=== PATIENT | female | born 1975 | race Caucasian/White ===

== ENCOUNTER 2017-01-07 02:23 | Emergency (ER) | payer BC ==
--- NOTE | ~2017-01-07 | ER ---
PATIENT'S NAME: ESTUARDO HELMS [facility] AGE: 41 Y [address] ROOM: [place] [address] LOCATION: [facility] ADMIT DATE: 01/07/2017 ER/Outpatient Report DISCHARGE DATE: FAMILY PHYSICIAN: Randy Delong MD ATTENDING PHYSICIAN: Barron Tobin Admission date and time are documented on the medical record. I saw the patient at 0245 hours. CHIEF COMPLAINT: Abdominal pain. HISTORY OF PRESENT ILLNESS: This patient is a 41-year-old female who comes in with abdominal pain, pretty much generalized, worse in the lower abdomen since 0100 hours. Not been feeling well for about a couple of days. Been depressed and sad. She has been having night sweats with shortness of breath. She has some shakiness with this also. Some nausea, but no vomiting. Hard to have a bowel movement. She has a chronic intermittent constipation. No fever, chills, sweats, coughs, colds, or flus. No lightheadedness, dizziness, syncope, or near syncope. No fall or trauma. No chest pain, shortness of breath at the present time. No joint or muscle swelling, redness, or pain. No skin eruptions or rash. No neuro changes, psych issues, other than sadness and depression. HOME MEDICATIONS: See attached medication list. ALLERGIES: NONE. SOCIAL HISTORY: Nonsmoker, nondrinker. SIGNIFICANT PAST MEDICAL HISTORY: Chronic intermittent constipation. OPERATIONS: Three C-sections. REVIEW OF SYSTEMS: All systems reviewed by me are negative with the exception of those discussed in the history of present illness. PHYSICAL EXAMINATION: PATIENT'S NAME: ESTUARDO HELMS [facility] AGE: 41 Y [address] ROOM: [place], [place] [id number] LOCATION: [facility] ADMIT DATE: 01/07/2017 ER/Outpatient Report DISCHARGE DATE: FAMILY PHYSICIAN: Randy Delong MD ATTENDING PHYSICIAN: Barron Tobin VITAL SIGNS: Temperature 98.5, pulse 93, respirations 18, blood pressure 112/59, and O2 sat on room air is 97%. HEAD: Normocephalic. EYES, EARS, NOSE, THROAT: Clear. Mucous membranes moist. NECK: Negative. SPINE: Negative. LUNGS: Clear. No rales, rhonchi, or wheezes. HEART: Regular. Pulses are palpable. ABDOMEN: Soft, nondistended, nontender. Good bowel tones. No organomegaly or abnormal mass palpable. EXTREMITIES: Intact. NEUROVASCULAR: Intact. SKIN: Clear. No skin eruptions or rash. IMAGING STUDIES: Three-way abdominal x-ray showed no perforation, obstruction, or acute lung infiltrate. Did have marked increased stool pattern throughout the whole colon consistent with constipation. We will review x-ray with the radiologist. LABORATORY DATA: CMS was normal. Amylase, lipase were normal. White count 7300, 62 segs, 27 lymphs, 6 monos, 4 eos, 1 baso, hemoglobin is 13.4 with hematocrit 40.7, and platelet count is 244,000. EMERGENCY DEPARTMENT COURSE: I did give the patient 1 L of normal saline IV in the emergency room. Gave her 2 Dulcolax tablets, sent her home with a bottle of mag citrate to be taken orally at home. IMPRESSION: Abdominal pain, etiology uncertain, but most likely secondary to marked constipation. PLAN: The patient dismissed home. Observation. Activity as tolerated. Clear liquid diet for 24 hours then advance diet as tolerated. Good hydration. One bottle of mag citrate orally at home. Continue home medications and care. Follow up with personal physician as needed. Discussion ensued with the patient concerning my findings and recommendations, she understands. BARRON TOBIN MD PATIENT'S NAME: ESTUARDO HELMS [facility] AGE: 41 Y [address] ROOM: [place] [address] LOCATION: ED ADMIT DATE: 01/07/2017 ER/Outpatient Report DISCHARGE DATE: FAMILY PHYSICIAN: Randy Delong MD ATTENDING PHYSICIAN: Barron Tobin/modl /[id number] d: 01/07/174 t: 01/07/17 1813, OUTPATIENT REPORT
[2017-01-07 03:12] LABS: BASOPHIL # 0.1 K/uL (0.0-0.2); BASOPHIL % 0.7 %; EOSINOPHIL # 0.3 K/uL (0.0-0.5); EOSINOPHIL % 3.8 %; HEMATOCRIT 40.7 % (33.0-46.0); HEMOGLOBIN 13.4 g/dL (10.0-15.0); IMMATURE GRANULOCYTE % 0.1 %; LYMPHOCYTE % 27.4 %; MCH 31.6 pg (27.0-34.0); MCHC 32.9 gm/dL (32.0-36.5); MONOCYTE # 0.4 K/uL (0.0-1.0); MONOCYTE % 5.9 %; MPV 9.5 fl (9.4-12.4); NEUTROPHIL # (ANC) 4.6 K/uL (1.8-7.8); NEUTROPHIL % 62.1 %; NRBC % 0 /100WBC (0-0.00); PLATELET COUNT 244 K/uL (150-450); RBC 4.24 M/uL (3.50-5.50); RDW-CV 13.3 % (11.9-14.6); WBC 7.3 K/uL (4.0-11.0)
[2017-01-07 03:29] LABS: ALBUMIN 3.3 gm/dL (3.5-5.0); ALK PHOS 38 IU/L (33-138); ALT 22 IU/L (12-78); AST 17 IU/L (10-40); BLOOD UREA NITROGEN 21 mg/dL (6-24); CALCIUM 8.7 mg/dL (8.5-10.5); CHLORIDE 106 mMol/L (96-110); CO2 25 mMol/L (22-32); ESTIMATED GFR (MDRD EQUATION) > 60; SODIUM 141 mMol/L (135-145); TOTAL BILIRUBIN 0.2 mg/dL (0.0-1.5); TOTAL PROTEIN 7.2 g/dL (6.0-8.4)
== END 2017-01-07 04:01 | disposition disaster alternative care site (69) ==
LOC: GMED 02:23
PROVIDERS: Emergency Medicine
DX: R10.9 Unspecified abdominal pain (principal); Z98.890 Other specified postprocedural states
CPT/HCPCS: J2405; J7030

== ENCOUNTER 2017-01-12 13:46 | Emergency (ER) | payer BC ==
--- NOTE | ~2017-01-12 | ER ---
PATIENT'S NAME: ESTUARDO HELMS [facility] AGE: 41 Y [address] ROOM: [place] [address] LOCATION: [facility] ADMIT DATE: 01/12/2017 ER/Outpatient Report DISCHARGE DATE: 01/12/2017 FAMILY PHYSICIAN: Randy Delong MD ATTENDING PHYSICIAN: Wilmer Barrett Time of Arrival: 1346 hours. Time of Evaluation: 1410 hours. CHIEF COMPLAINT: Abdominal pain. HISTORY OF PRESENT ILLNESS: This is a 41-year-old female, who presents to the ER, who states that she was evaluated here in the emergency room last Tuesday. She was diagnosed with constipation, and she has thought she has not had a bowel movement prior to that visit for approximately 3 weeks. She states that she believes her constipation issues are stemming from her surgery that she had in October, but she has had a history of constipation prior to that. She states she did do magnesium citrate enema x2, Dulcolax tabs, and prune juice and MiraLAX and did have a loose stool on Tuesday. She states that she has continued doing prune juice and MiraLAX, and she still feels like she is constipated. She states that she did call her primary care physician, Dr. Randy Delong, and he told her that he thought she needed a CT scan of her abdomen. She was told that she needed to come to the clinic or to the emergency room, so she came here to the emergency room to be re-evaluated. She has had no fevers. She has had nausea, no vomiting. Her last bowel movement was a loose stool that she had on Tuesday, and she is currently on her menstrual cycle. She states her abdomen is "painful." She denies any other problems at this time. ALLERGIES: NO KNOWN ALLERGIES. MEDICATIONS: Please see medication list in nurse's notes. PAST MEDICAL HISTORY: Depression. PAST SURGICAL HISTORY: x2, cyst removal, and breast augmentation. PHYSICAL EXAMINATION: VITAL SIGNS: Height 5 feet 9 inches stated, weight 89.1 kg taken, blood pressure is 133/87, pulse 86, respirations 20, temperature 98.6 degrees PATIENT'S NAME: ESTUARDO HELMS [facility] AGE: 41 Y [address] ROOM: [place] [id number] LOCATION: ED ADMIT DATE: 01/12/2017 ER/Outpatient Report DISCHARGE DATE: 01/12/2017 FAMILY PHYSICIAN: Randy Delong MD ATTENDING PHYSICIAN: Wilmer Barrett tympanically, saturations 97% on room air. Empire Coma score is 15. GENERAL: An alert, calm, well-developed female, in no acute distress. HEENT: Head: Normocephalic. Eyes: Pupils are equal and reactive to light. She does display moist mucous membranes. LUNGS: Clear to auscultation bilaterally. No wheezes or crackles. Normal respiratory effort. HEART: Regular rate and rhythm. No lifts, thrills, or murmurs. ABDOMEN: Soft. She has generalized tenderness in all 4 quadrants to palpation. She has no guarding. No rebound tenderness. She has good bowel sounds throughout. EXTREMITIES: No clubbing or cyanosis. She has full range of motion of all limbs. LABORATORY DATA AND X-RAYS: CBC: White count was 7.3, hemoglobin 13.6, platelets 277, ANC is 4.4. CMS: Glucose is 103, calcium is 8.4, otherwise unremarkable. Urinalysis, UA micro: White blood cells 2 to 5, red blood cells full field, epithelial 10-20, bacteria rare, urine HCG was negative. CT scan of the abdomen, no acute processes seen, but she does have some constipation reported by Radiology. IMPRESSION: Abdominal discomfort secondary to constipation. ASSESSMENT AND PLAN: The patient states that she has magnesium citrate at home to drink. I advised her to continue to do that, continue all her home therapies. She needs to monitor her diet, push fluids, and follow up with her primary care physician for followup care. The patient understands and agrees with care. SOPHIE CEDENO PA-C FOR DO DEEPTI MCKEON/erin /[id number] d: t: 01/15/17 1312, OUTPATIENT REPORT
[2017-01-12 14:29] LABS: BILIRUBIN URINE NEGATIVE (NEGATIVE); BLOOD URINE 250 /UL (NEGATIVE); COLOR URINE YELLOW (YELLOW); GLUCOSE URINE NEGATIVE (NEGATIVE); KETONE URINE NEGATIVE (NEGATIVE); LEUKOCYTES URINE 25 /UL (NEGATIVE); NITRITE URINE NEGATIVE (NEGATIVE); PROTEIN URINE NEGATIVE (NEGATIVE); SPEC GRAVITY URINE 1.015 (1.003-1.035); TURBIDITY URINE 1+ (CLEAR); UROBILINOGEN URINE NORMAL (NORMAL)
[2017-01-12 14:31] LABS: BASOPHIL # 0.1 K/uL (0.0-0.2); BASOPHIL % 0.7 %; EOSINOPHIL # 0.3 K/uL (0.0-0.5); EOSINOPHIL % 3.6 %; HEMATOCRIT 40.4 % (33.0-46.0); HEMOGLOBIN 13.6 g/dL (10.0-15.0); IMMATURE GRANULOCYTE % 0.3 %; LYMPHOCYTE # 2.1 K/uL (0.8-4.0); LYMPHOCYTE % 29.3 %; MCH 31.8 pg (27.0-34.0); MCHC 33.7 gm/dL (32.0-36.5); MCV 94.4 fl (83.0-98.0); MONOCYTE # 0.5 K/uL (0.0-1.0); MONOCYTE % 6.3 %; MPV 9.5 fl (9.4-12.4); NEUTROPHIL # (ANC) 4.4 K/uL (1.8-7.8); NEUTROPHIL % 59.8 %; NRBC % 0 /100WBC (0-0.00); PLATELET COUNT 277 K/uL (150-450); RBC 4.28 M/uL (3.50-5.50); RDW-CV 13.2 % (11.9-14.6); WBC 7.3 K/uL (4.0-11.0)
[2017-01-12 14:47] LABS: BACTERIA URINE RARE (NEGATIVE); RBC URINE FULL FIELD #/HPF (NEGATIVE)
[2017-01-12 14:48] LABS: ALBUMIN 3.5 gm/dL (3.5-5.0); ALK PHOS 54 IU/L (33-138); ALT 26 IU/L (12-78); ANION GAP 11.1 (10.0-19.0); AST 26 IU/L (10-40); BLOOD UREA NITROGEN 17 mg/dL (6-24); CALCIUM 8.4 mg/dL (8.5-10.5); CHLORIDE 105 mMol/L (96-110); CO2 28 mMol/L (22-32); ESTIMATED GFR (MDRD EQUATION) > 60; POTASSIUM 4.1 mMol/L (3.7-5.1); SODIUM 140 mMol/L (135-145); TOTAL BILIRUBIN 0.2 mg/dL (0.0-1.5); TOTAL PROTEIN 7.5 g/dL (6.0-8.4)
== END 2017-01-12 16:00 | disposition disaster alternative care site (69) ==
LOC: GMED 13:46
PROVIDERS: Emergency Medicine
DX: K59.00 Constipation, unspecified (principal); F32.9 Major depressive disorder, single episode, unspecified; Z98.890 Other specified postprocedural states
CPT/HCPCS: Q9967